=== PATIENT | male | born 2000 | race Caucasian/White ===

== ENCOUNTER 2024-06-07 17:37 | Emergency (ER) | payer SELFPAY ==
--- NOTE | ~2024-06-07 | XR_ITS ---
EXAMINATION: XR KNEE, LEFT CLINICAL INFORMATION: Knee pain. No known injury. COMPARISON: None available. TECHNIQUE: Four views of the left knee. FINDINGS: No fracture or joint effusion identified. Alignment is anatomic. Joint spaces appear maintained. No abnormal soft tissue calcification. XR/XR knee LT 3V IMPRESSION: Normal Kevin film examination of the left knee. Electronically signed by: Jose Cee MD 06/07/2024 08:56 PM EDT
[2024-06-07 17:49] VITALS: BP 109/65; PULSE 75; RESP 16; TEMP 36.6; O2SAT 99; BMI 21.2
--- NOTE | 2024-06-07 18:07 | ED_ITS ---
HPI - Extremity Problem General Chief complaint: Extremity Problem Stated complaint: left knee infection/been treated by others Time Seen by Provider: 06/07/24 22:32 History of Present Illness ED Provider: Kim TRENT Narrative: The patient is a 23-year-old male who says that he sustained an injury to the skin of the left patella over 1 month ago when he struck it against a piece of metal. He subsequently developed an infection. He was treated with a course of cephalexin that was prescribed at [facility]. Was not clear if he was improving and he was later given a course of doxycycline. He finished the doxycycline about 4 days ago but was not certain that he was really getting better. Yesterday he thought he was somewhat worse and went back to [facility] and was again prescribed cephalexin. Today he does not feel he has gotten any better and came to this emergency room. The patient says that when he was seen initially at [facility] he was told that he had a fluid collection on ultrasound when the tissue in front of the patella was examined. He does not feel that the skin over the patella is as swollen as it was then. He has not had any fevers. Related Data Previous Rx's ?Medication ?Instructions ?Recorded sulfamethoxazole 800 1 tab PO BID #14 tabs 06/07/24 mg-trimethoprim 160 mg tablet Allergies Allergy/AdvReac Type Severity Reaction Status Date / Time No Known Allergies Allergy Verified 06/07/24 17:56 Review of Systems 2 Review of Systems: Yes all other systems are reviewed and are negative PMFSH Social History Social History Advance Directives: No Advance Directives Information Provided: No Physical Exam 2 Vital Signs: Vital Signs: Last Vital Signs Temp 98.3 F 06/07/24 23:09 Pulse 58 06/07/24 23:09 Resp 18 06/07/24 23:09 BP 110/54 L 06/07/24 23:09 Pulse Ox 97 06/07/24 23:09 O2 Del Method Room Air 06/07/24 23:09 BMI result Body Mass Index 21.2 Const: General: cooperative, healthy appearing and no acute distress HEENT: Head: Yes normal to inspection Mouth: Normal oral and palatal mucosa present Eyes: General: appearance normal, both eyes and all related structures Neck: Neck: Yes supple Resp: Effort & Inspection: normal respiratory effort Auscultation: clear to auscultation bilaterally Cardio: Rate: regular rate Rhythm: regular rhythm Heart sounds: S1 normal heart sound present and S2 normal heart sound present Skin: Other: There is some mild swelling to the skin over the left patella. The skin is not particularly erythematous. The skin on the other portions of the knee is normal. The skin overlying the patella feels thick but not fluctuant. It is somewhat tender. Neuro: Other: The patient is awake and alert with a normal mental status and is neurologically intact. Extrem: Other: The patient has some swelling and tenderness to the skin of the left patella. There is no true erythema present. No definite fluctuance. The knee is not swollen. He has pain at the patella with flexion of the knee but he can move the knee. Course Course Course Narrative: This is an RME: Additional HPI, ROS, PE not included below will be deferred to primary provider. RME assessment and note performed by: Liz Michele PA-C This is a 23-year-old male who presents emergency department with complaints of left knee pain and swelling. He states that he accidentally hit his left knee on a piece of metal which caused a wound which then became infected 1 month ago. He was initially treated with Keflex which did not alleviate the infection, he was then switched to doxycycline for 14 days. He continues to have pain, swelling, erythema. He was seen at [facility] last night and was prescribed another round of Keflex. Endorsing chills, no fevers. Plan: xrays, labs Medications Administered Discontinued Medications Generic Name Dose Route Start Last Admin Trade Name Freq PRN Reason Stop Dose Admin Trimethoprim/Sulfamethoxazole 1 tab 06/07/24 22:55 06/07/24 23:03 Sulfamethox/Trimeth 800/160 Tablet PO 06/07/24 22:56 1 tab ONCE ONE Administration Medical Decision Making Medical Decision Making MDM Narrative: The patient is a 23-year-old male who has been having problems with his left prepatellar area for several weeks. I suspect that he initially had some kind of a prepatellar cellulitis or bursitis. He has taken a course of cephalexin and a course of doxycycline. Yesterday he felt that he was worsening and went to the [facility] Emergency room and was prescribed cephalexin. I think he is here today because he is having ongoing symptoms and is concerned he might need IV antibiotics. Clinically there is no indication that I can see for IV antibiotics. He is afebrile. He does not appear toxic. His white count is normal. CRP is normal. A bedside ultrasound shows a small amount of fluid in the prepatellar tissues but I do not think this represents a definite abscess. I wonder if the patient might simply have an inflammatory prepatellar bursitis at this point rather than a persistent infection. In any event since he started the cephalexin yesterday I think it would be reasonable to add MRSA coverage and so he was given Bactrim as well. I think it would be good for him to be seen at an orthopedic office for another opinion so that he does not keep going to emergency rooms. He does not have a PCP. He was given the contact information for [facility] Orth[facility]. Lab Data 06/07/24 19:21 06/07/24 19:21 Labs: Lab Results 06/07/24 Range/Units 19:21 WBC 5.0 (4.8-10.8) X10*3/uL RBC 4.61 (4.60-5.80) X10*6/uL Hgb 14.8 (14.0-18.0) g/dl Hct 42.2 (42.0-52.0) % MCV 91.5 (80.0-98.0) fL MCH 32.1 (27.0-33.0) pg MCHC 35.1 (31.0-36.0) g/dl RDW 12.5 (11.0-16.0) % Plt Count 260 (160-400) X10*3/uL MPV 8.2 L (9.4-12.4) fL Immature Gran % (Auto) 0.2 (0.0-0.4) % Neut % (Auto) 49.4 (45-73) % Lymph % (Auto) 40.4 H (20-40) % [place] % (Auto) 6.6 (2-11) % Eos % (Auto) 2.6 (0-4) % Baso % (Auto) 0.8 (0-2) % Lymph # (Auto) 2.0 (1.2-4.9) X10*3/uL [place] # (Auto) 0.3 (0.1-1.2) X10*3/uL Eos # (Auto) 0.1 (0.0-0.4) X10*3/uL Baso # (Auto) 0.0 (0.0-0.2) X10*3/uL Abs Immat Gran (auto) 0.01 (0.00-0.03) X10*3/uL Absolute Neuts (auto) 2.5 (2.0-8.3) x10*3/uL Absolute Nucleated RBC 0.000 (0.0-0.012) X10*3/uL Nucleated RBC % (auto) 0.0 (0.0-0.2) /100WBC ESR 2 (0-15) MM/HR Sodium 145 (135-145) mmol/L Potassium 4.2 (3.3-5.1) mmol/L Chloride 111 H (96-108) mmol/L Carbon Dioxide 26 (22-29) mmol/L Anion Gap 12 (12-20) BUN 7 L (9-16) mg/dL Creatinine 0.83 (0.5-1.4) mg/dL Estim Creat Clear Calc 148.3 Estimated GFR > 60 Random Glucose 120 H (60-115) mg/dL Uric Acid 6.3 (3.4-7.0) mg/dL Calcium 8.9 (8.4-10.2) mg/dL Total Bilirubin 0.4 (0.0-1.0) mg/dL Direct Bilirubin 0.1 (0.0-0.5) mg/dL AST 34 (5-37) U/L ALT 18 (0-40) U/L Alkaline Phosphatase 93 (39-117) U/L C-Reactive Protein < 0.10 (< or = 0.50) mg/dL Total Protein 7.0 (6.5-8.0) g/dL Albumin 4.3 (3.5-5.0) g/dL Discharge Plan Discharge Clinical Impression: Prepatellar bursitis of left knee Patient Disposition: Home, Self-Care Instructions: Knee Bursitis (ED) Additional Instructions: I think at this point you have inflammation of the bursa that lies in front of your left kneecap. This condition is called ?prepatellar bursitis. It is hard to know if at this point bursitis is being caused by an infection or whether this is simply ongoing inflammation from a previous infection. In case there is still an infectious component I am adding a 2nd antibiotic to your regimen. Please take the sulfamethoxazole/trimethoprim in addition to the cephalexin you are currently taking. Take the new antibiotic 2 times a day. Use the knee immobilizer to stabilize the knee and to reduce movement of the knee. This should help reduce inflammation and speed healing. I would recommend resting and elevating the leg and using warm compresses to the kneecap. Ibuprofen and acetaminophen as needed for pain. Please contact the orthopedic office on Sunday for a follow up appointment this week for a 2nd opinion from an orthopedist. Return to the emergency room if significantly worse. Prescriptions: New sulfamethoxazole-trimethoprim 800-160 mg tablet 1 tab PO BID Qty: 14 0RF Referrals: [facility] [place] Orthopedic Surgeons [Provider Group] (left knee prepatellar bursitis) Stand Alone Forms: Work/School Release Interventions: ED Discharge Assessment Last Done: 06/07/24 23:09 Discharge Date/Time: 06/07/24 23:10 Print Language: Hungarian
[2024-06-07 19:29] LABS: MANUAL DIFF FLAG NO
[2024-06-07 19:34] LABS: Basophils Percent Auto 0.8 % (0-2); Eosinophils Absolute Auto 0.1 X10*3/uL (0.0-0.4); Eosinophils Percent Auto 2.6 % (0-4); Hematocrit 42.2 % (42.0-52.0); Hemoglobin 14.8 g/dl (14.0-18.0); Imm Gran Abs Auto 0.01 X10*3/uL (0.00-0.03); Imm Gran Pct Auto 0.2 % (0.0-0.4); Lymphocytes Percent Auto 40.4 % (20-40); Mean Corpuscular HGB Conc 35.1 g/dl (31.0-36.0); Mean Corpuscular Hemoglobin 32.1 pg (27.0-33.0); Mean Corpuscular Volume 91.5 fL (80.0-98.0); Mean Platelet Volume 8.2 fL (9.4-12.4); Monocytes Absolute Auto 0.3 X10*3/uL (0.1-1.2); Monocytes Percent Auto 6.6 % (2-11); Neutrophils Absolute Auto 2.5 x10*3/uL (2.0-8.3); Neutrophils Percent Auto 49.4 % (45-73); Platelet Count 260 X10*3/uL (160-400); Red Blood Count 4.61 X10*6/uL (4.60-5.80); Red Cell Distribution Width 12.5 % (11.0-16.0)
[2024-06-07 19:47] LABS: Alanine Aminotransferase 18 U/L (0-40); Albumin Level 4.3 g/dL (3.5-5.0); Alkaline Phosphatase 93 U/L (39-117); Anion Gap 12 (12-20); Aspartate Amino Transferase 34 U/L (5-37); Bilirubin Direct 0.1 mg/dL (0.0-0.5); Bilirubin Total 0.4 mg/dL (0.0-1.0); Blood Urea Nitrogen 7 mg/dL (9-16); C Reactive Protein < 0.10 mg/dL (< or = 0.50); Calcium 8.9 mg/dL (8.4-10.2); Carbon Dioxide 26 mmol/L (22-29); Chloride 111 mmol/L (96-108); Creatinine Clr Calc Pharmacy 148.3; Estimated Glomerular Filt Rate > 60; Glucose Random 120 mg/dL (60-115); Potassium 4.2 mmol/L (3.3-5.1); Sodium 145 mmol/L (135-145); Uric Acid 6.3 mg/dL (3.4-7.0)
[2024-06-07 20:13] LABS: Erythrocyte Sedimentation Rate 2 MM/HR (0-15)
[2024-06-07 22:35] VITALS: BP 110/54; PULSE 58; RESP 18; TEMP 36.8; O2SAT 97
[2024-06-07] MEDS: Sulfamethox/Trimeth 800/160 TABLET 1 TAB PO (23:03)
[2024-06-07 23:09] VITALS: BP 110/54; PULSE 58; RESP 18; TEMP 36.8; O2SAT 97
== END 2024-06-07 23:10 | disposition home or self-care (01) ==
PROVIDERS: Physician Assistant Medical; Emergency Provider Emergency Medicine
DX: M70.42 Prepatellar bursitis, left knee (principal); M25.462 Effusion, left knee
CPT/HCPCS: 36415; 73562; 80048; 80076; 84550; 85025; 85652; 86140; 99282; 99283